=== PATIENT | female | born 1995 | race Hispanic/Latino ===

== ENCOUNTER 2017-07-31 05:04 | Inpatient (IN) | payer MEDICAID ==
[~2017-07-31] VITALS: Ht 152.4 cm; Wt 76.7 kg
[2017-07-31] VITALS (8 sets, daily range): BP systolic 95–110; BP diastolic 48–65
[~2017-07-31 05:04] MED LIST: IBUP-2070 PO
[2017-07-31] MEDS ORDERED: LACTATED RINGERS 1000ML 1,000 ML IV STA (05:14)
[2017-07-31] MEDS ORDERED: LACTATED RINGERS 1000ML 1,000 ML IV ONE (05:18)
[2017-07-31 05:24] LABS: APPEARANCE,URINE Turbid (CLEAR); BILIRUBIN,URINE Negative (NEGATIVE); COLOR,URINE Yellow (YELLOW); GLUCOSE, URINE (UA) Negative (NEGATIVE); KETONES,URINE Negative (NEGATIVE); LEUKOCYTE ESTERASE ,URINE Large (NEGATIVE); NITRATE,URINE Negative (NEGATIVE); OCCULT BLOOD,URINE Negative (NEGATIVE); PH,URINE 6.5 (5.0-8.0); PROTEIN,URINE POS 1+ (NEGATIVE)
[2017-07-31 05:37] LABS: BACTERIA,URINE Moderate /HPF (None Seen); MUCUS,URINE None Seen LPF (None Seen); SQUAMOUS EPITHELIAL CELL,UR Many /HPF (0-2); TRANSITIONAL EPI CELLS,URINE Moderate /HPF (None Seen)
[2017-07-31] MEDS ORDERED: LACTATED RINGERS 1000ML 1,000 ML IV PRN (06:30)
[2017-07-31] MEDS ORDERED: OXYTOCIN 10 USP UNITS/ML 20 UNIT in LACTATED RINGERS 1000ML 1,000 ML IV SCH (06:30)
[2017-07-31] MEDS ORDERED: OXYTOCIN-LR 20 UNITS/1000 ML 1,000 ML IV SCH (06:45)
[2017-07-31] MEDS ORDERED: OXYTOCIN 10 USP UNITS/ML ONE ×2 (07:18→11:23)
[2017-07-31] MEDS ORDERED: MEPERIDINE-PF 50 MG/ML SYG IVP SCH (09:00)
[2017-07-31] MEDS ORDERED: PROMETHAZINE HCL 25 MG/ML 1ML AMPULE IM SCH (09:00)
[2017-07-31 10:05] LABS: HEMATOCRIT 35.7 % (36-48); MEAN CORPUSCULAR HEMOGLOBIN 29.2 pg (27.0-33.0); MEAN CORPUSCULAR HGB CONC 33.3 g/dL (32.0-36.0); MEAN CORPUSCULAR VOLUME 87.5 fL (79-99); NUCLEATED RED BLOOD CELLS 0.1 % (0.0-0.19); PLATELET COUNT (AUTO) 204 K/uL (130-400); RED BLOOD CELL COUNT(AUTO) 4.08 MIL/uL (4.00-5.50); RED CELL DISTRIBUTION WIDTH 15.7 % (11.0-15.5); WHITE BLOOD COUNT (AUTO) 13.8 K/uL (4.8-10.8)
[2017-07-31] MEDS ORDERED: BENZOCAINE/LANOLIN/ALOE VERA 60 ML AEROSOL TP PRN (11:00)
[2017-07-31] MEDS ORDERED: HYDROCODONE/ACETAMINOPHEN 5/325 MG TAB PO PRN (11:00)
[2017-07-31] MEDS ORDERED: MEASLES/MUMPS/RUBELLA VACCINE, LIVE 0.5 ML/VIAL SQ PRN (11:00)
[2017-07-31] MEDS ORDERED: WITCH HAZEL 1 PAD TP PRN (11:00)
[2017-07-31] MEDS ORDERED: ACETAMINOPHEN-CODEINE 300/30MG TAB PO PRN (11:00)
[2017-07-31] MEDS ORDERED: ACETAMINOPHEN 325 MG TAB PO PRN (11:00)
[2017-07-31] MEDS ORDERED: DIPH,PERTUSS(ACELL),TET VAC/PF 0.5 ML VIAL IM PRN (11:00)
[2017-07-31] MEDS ORDERED: LANOLIN 30GM OINTMENT TP PRN (11:00)
[2017-07-31] MEDS ORDERED: FERR-82 PO (11:09)
[2017-07-31] MEDS ORDERED: PREN1COM14 PO (11:09)
[2017-07-31] MEDS: IBUPROFEN 800 MG TAB PO PRN (17:30)
[2017-07-31] MEDS: DOCUSATE SODIUM 100 MG CAP PO SCH (21:49)
[2017-08-01 03:30] VITALS: BP 120/74
[2017-08-01 05:35] LABS: HEMATOCRIT 31.4 % (36-48); MEAN CORPUSCULAR HEMOGLOBIN 29.2 pg (27.0-33.0); MEAN CORPUSCULAR HGB CONC 33.4 g/dL (32.0-36.0); MEAN CORPUSCULAR VOLUME 87.4 fL (79-99); NUCLEATED RED BLOOD CELLS 0.1 % (0.0-0.19); PLATELET COUNT (AUTO) 165 K/uL (130-400); RED BLOOD CELL COUNT(AUTO) 3.59 MIL/uL (4.00-5.50); RED CELL DISTRIBUTION WIDTH 16.2 % (11.0-15.5); WHITE BLOOD COUNT (AUTO) 13.7 K/uL (4.8-10.8)
[2017-08-01 07:30] VITALS: BP 122/65
[2017-08-01 07:35] LABS: HEPATITIS Bs ANTIGEN SCREEN P Negative (Negative)
[2017-08-01] MEDS: DOCUSATE SODIUM 100 MG CAP PO SCH (09:28)
[2017-08-01] MEDS: IBUPROFEN 800 MG TAB PO PRN (09:29)
[2017-08-01 11:26] VITALS: BP 108/66
== END 2017-08-01 12:35 | disposition home or self-care (01) | DRG 560 ==
LOC: EDH 05:04 → OBSVTOIN 05:05 → LDH 05:05 → WSH 10:52
PROVIDERS: ADMIT Obstetrics & Gynecology; ATTEND Obstetrics & Gynecology
PROC: 10E0XZZ Delivery of Products of Conception, External Approach (ICD-10-PCS; principal; 2017-07-31)
PROC: 10907ZC Drainage of Amniotic Fluid, Therapeutic from Products of Conception, Via Natural or Artificial Opening (ICD-10-PCS; 2017-07-31)
PROC: 3E0234Z Introduction of Serum, Toxoid and Vaccine into Muscle, Percutaneous Approach (ICD-10-PCS; 2017-07-31)
DX: O69.1XX0 Labor and delivery complicated by cord around neck, with compression, not applicable or unspecified (principal); Z23 Encounter for immunization; Z37.0 Single live birth; Z3A.38 38 weeks gestation of pregnancy
CPT/HCPCS: 36415; 81001; 85027; 86592; 86850; 86900; 86901; 87340; 90715; A4351; J2175; J2550; J2590; J7120